=== PATIENT | male | born 1950 | race Caucasian/White ===

== ENCOUNTER 2021-07-30 12:06 | Emergency (ER) | payer OTHER ==
[~2021-07-30] VITALS: Ht 177.8 cm; Wt 74.8 kg
[2021-07-30 12:06] VITALS: BP_SYST 137
--- NOTE | 2021-07-30 12:15 | NUR ---
PT BIBA FROM [facility] FOR MULTIPLE COMPLAINTS. PT IS AAOx2, UNSTABLE, TACHYPNEIC, SATURATING 98-100% ON 2L NC, HYPERGLYCEMIC WITH BLOOD SUGAR 571. PT TO BE FURTHER ASSESSED BY ED MD FOR PLAN OF CARE WITH DISPOSITION.
--- NOTE | 2021-07-30 12:15 | NUR ---
ED MD AT BEDSIDE
[2021-07-30 12:48] LABS: BASOPHILS % (AUTO) 0.2 % (0.0-2.0); EOSINOPHILS % (AUTO) 0.1 % (0.0-4.0); HEMOGLOBIN 7.1 g/dL (14.0-18.0); LYMPHOCYTES % (AUTO) 7.9 % (20.5-51.5); MEAN CORPUSCULAR HEMOGLOBIN 30 pg (27-31); MEAN CORPUSCULAR HGB CONC 32 % (32-36); MEAN CORPUSCULAR VOLUME 94 fL (79.0-98.0); MONOCYTES # (AUTO) 0.7 K/uL (0.0-1.0); MONOCYTES % (AUTO) 5.3 % (1.7-9.3); NEUTROPHILS # (AUTO) 11.4 K/uL (1.8-7.7); NEUTROPHILS % (AUTO) 86.5 % (40.0-70.0); PLATELET COUNT (AUTO) 382 K/uL (130-430); RED BLOOD CELL COUNT(AUTO) 2.34 MIL/uL (4.2-6.2); RED CELL DISTRIBUTION WIDTH 13.3 % (9.0-15.0); WHITE BLOOD COUNT (AUTO) 13.2 K/uL (4.8-10.8)
[2021-07-30 13:00] VITALS: BP_SYST 124
[2021-07-30] MEDS ORDERED: VANCOMYCIN HCL 1,000 MG in NS 250 ML IV ONE (13:15)
[2021-07-30] MEDS ORDERED: CEFEPIME 2 GM in D5W 100 ML IV ONE (13:15)
[2021-07-30] MEDS ORDERED: NACL 0.9% 1,000 ML IV ONE (13:15)
--- NOTE | 2021-07-30 13:25 | NUR ---
CAME TO BED #3 TO ASSIST LAB WITH TYPE AND SCREEN, PT UNRESPONSIVE, MD NOTIFIED, CRASH CART BROUGHT TO BEDSIDE CPR STARTED
--- NOTE | 2021-07-30 13:30 | NUR ---
Note onel in ED - 07/30/21 at 1444 by [id number] CALLED [facility] AND SPOKE WITH NEHEMIAS IN REGARDS TO PT CANDIDACY FOR DONOR. CARE OPENED AND REF #: [id number]
[2021-07-30 13:31] LABS: SODIUM SERUM 125 mmol/L (136-145)
[2021-07-30 13:32] LABS: ANION GAP 12 (5-15); CALCIUM 7.5 mg/dL (8.4-11.0); CHLORIDE 98 mmol/L (98-107); CREATININE 2.18 mg/dL (0.55-1.30); GLUCOSE 723 mg/dL (70-99); POTASSIUM 7.4 mmol/L (3.5-5.1); TOTAL BILIRUBIN 0.8 mg/dL (0.0-1.0); UREA NITROGEN, BLOOD 70 mg/dL (8-21)
[2021-07-30 13:33] LABS: ALANINE AMINOTRANSFERASE 33 U/L (12-78); ALBUMIN 1.6 g/dL (3.4-4.8); ASPARTATE AMINOTRANSFERASE 25 U/L (10-37); LIPASE 25 U/L (73-393)
[2021-07-30] MEDS ORDERED: INSULIN REGULAR, HUMAN 10 UNITS/0.1 ML INJ ONE (13:36)
--- NOTE | 2021-07-30 13:46 | NUR ---
CODE CALLED AT [address] ADLER
--- NOTE | 2021-07-30 13:50 | NUR ---
1335 called in to assist in code blue. bagged pt, compressions done, 1346 code called.
--- NOTE | 2021-07-30 13:55 | NUR ---
PER MD, AFTER CODING PATIENT THROUGH MULTIPLE ROUNDS DECIDED TO CALL CODE PATIENT REMAINED ASYSTOLE THROUGHOUT
--- NOTE | 2021-07-30 14:15 | NUR ---
BEST FRIEND AT BEDSIDE, ED MD ATTEMPTING TO CONTACT .
--- NOTE | 2021-07-30 14:16 | NUR ---
DR ADLER SPEAKING WITH FAMILY IN TRIAGE ROOM
--- NOTE | 2021-07-30 14:30 | NUR ---
CALLED [facility] AND SPOKE WITH NEHEMIAS IN REGARDS TO PT CANDIDACY FOR DONOR. [facility] OPENED AND REF #: [id number]
--- NOTE | 2021-07-30 14:47 | NUR ---
CALLED [facility] AND NOTIFIED CIRCULAR STUFFER NICK. PT DOES NOT QUALIFY FOR CASE. PT TO BE RELEASED TO FAMILY AND MORTUARY
--- NOTE | 2021-07-30 14:48 | NUR ---
CALLED TO [facility] AND SPOKE WITH PRIMARY NURSE LANDEN, INFORMED OF PTS AND LANDEN STATES THAT HIS PMD IS AT [facility] AT THIS TIME AND SHE WILL INFORM HIM.
--- NOTE | 2021-07-30 15:35 | NUR ---
PTS ATTENDING DR MENDOZA AL CALLED AND SPOKE WITH DR SMITH
--- NOTE | 2021-07-30 16:25 | NUR ---
CALLED AND SPOKE WITH CONG AT [phone] AND SHE STATED THAT FAMILY FRIEND HANNAH GUADALUPE WILL ARRANGE THE MORTUARY. SPOKE WITH HIM AND HIS TELEPHONE NUMBER [phone].
--- NOTE | 2021-07-30 16:30 | NUR ---
[facility] RETURNED PHONE CALL AND REQUESTED INFORMATION. NOTIFIED THEM [place] [facility] [place]
== END 2021-07-30 16:30 ==
LOC: SED 12:06
DX: I46.9 Cardiac arrest, cause unspecified (principal); E11.65 Type 2 diabetes mellitus with hyperglycemia; Z88.5 Allergy status to narcotic agent
CPT/HCPCS: 36415; 71045; 80053; 80162; 82962; 83605; 83690; 83880; 84484; 85025; 87040; 92950; 93005; 99285; J0692; J1815; J7060